=== PATIENT | male | born 1990 | race Caucasian/White ===

== ENCOUNTER 2020-09-30 03:54 | Day surgery (SDCO) | payer OTHER ==
[~2020-09-30 03:54] MED LIST: FLEXERIL5 MG PO; VOLTAREN **OUT50 MG PO
[2020-09-30 04:19] LABS: BASOPHIL 0.3 % (0-2); EOSINOPHIL 0.3 % (0-5); HCT 44.1 % (42.0-52.0); HGB 14.8 g/dl (13.2-18.0); LYMPHOCYTE 11.4 % (15-48); MCH 28.9 pg (25.0-31.0); MCHC 33.6 g/dL (32.0-36.0); MCV 86.1 fL (78.0-100.0); MONOCYTE 9.8 % (0-12); MPV 10.2 fL (6.0-9.5); NEUTROPHIL 77.9 % (41-80); NRBC 0; PLT 176 K/uL (150-400); RBC 5.12 M/uL (4.70-6.00); RDW 12.4 % (11.5-14.0); WBC 9.2 K/uL (4.0-10.5)
[2020-09-30 04:24] LABS: BILIRUBIN NEGATIVE (NEGATIVE); BLOOD TRACE-INTACT Ery/uL (NEGATIVE); CLARITY CLEAR (CLEAR); COLOR YELLOW (YELLOW); GLUCOSE (U) NORMAL (NORMAL); LEUKOCYTES NEGATIVE Leu/uL (NEGATIVE); NITRITE NEGATIVE (NEGATIVE); PROTEIN 2+ mg/dL (NEGATIVE); UROBILINOGEN 0.2 mg/dL (0.2-1.0); pH 5.5 (5.0-9.0)
[2020-09-30 04:27] LABS: URINARY RBC RARE
[2020-09-30 04:28] LABS: BACTERIA TRACE; SQUAMOUS EPITHELIAL CELLS RARE
[2020-09-30 04:37] LABS: ALBUMIN 4.1 g/dL (3.4-5.0); BILIRUBIN - TOTAL 0.8 mg/dL (0.2-1.0); CREATININE 2.4 mg/dL (0.67-1.17); GLOBULIN (CALCULATION) 3.5 g/dL; POTASSIUM 3.9 mmol/L (3.5-5.1); TOTAL PROTEIN 7.6 g/dL (6.4-8.2)
[2020-09-30] MEDS ORDERED: ZOFRAN4 M1 PO (06:52)
[2020-09-30] MEDS ORDERED: NORCO 5-325 TA1 EACH PO (06:52)
[2020-09-30 08:16] LABS: BUN/CREAT RATIO (CALC) 9.2 RATIO; CREATININE 2.62 mg/dL (0.67-1.17); POTASSIUM 3.8 mmol/L (3.5-5.1)
[2020-09-30 19:13] LABS: URINE CREATININE 121.13 mg/dL (29.00-226.00); URINE TOTAL PROTEIN-RANDOM 30.1 mg/dL (<11.9)
[2020-10-01 05:27] LABS: BUN/CREAT RATIO (CALC) 7.8 RATIO; CREATININE 2.95 mg/dL (0.67-1.17); POTASSIUM 4.1 mmol/L (3.5-5.1)
--- NOTE | 2020-10-01 12:52 | NUR ---
[address] BENSON OFFICE OF THE MORNING LABS PER HIS ORDERS. ANSWERING SERVICE NOTIFED THE NATURAL RESOURCE TECHNICIAN DOCTOR TO CALL BACK FOR THE RESULTS. 1020 DR. FRANCISCO NOTIFED THAT DR. RICO WAS NATURAL RESOURCE TECHNICIAN AND WOULD TALK TO HER WHEN SHE RETURNED THE CALL. 1030 DR. RICO WAS NATURAL RESOURCE TECHNICIAN FOR DR. BENSON AND DR. FRANCISCO WAS AT THE DESK AT THE TIME OF THE CALL AND TALKED TO DR. RICO AND REPORTED THE LAB RESULTS.
[2020-10-02 03:51] LABS: BUN/CREAT RATIO (CALC) 8.4 RATIO; CREATININE 2.15 mg/dL (0.67-1.17); POTASSIUM 4.1 mmol/L (3.5-5.1)
--- NOTE | 2020-10-02 11:27 | NUR ---
DISCUSSED DISCHARGE INSTRUCTIONS WITH PATIENT. PATIENT IN STABLE CONDITION.
[2020-10-03 18:08] LABS: A/G RATIO 1.5 (0.7-1.7); ALBUMIN 3.4 g/dL (2.9-4.4); ALPHA-1-GLOBULIN 0.2 g/dL (0.0-0.4); ALPHA-2-GLOBULIN 0.5 g/dL (0.4-1.0); BETA GLOBULIN 0.9 g/dL (0.7-1.3); GAMMA GLOBULIN 0.9 g/dL (0.4-1.8); GLOBULIN, TOTAL 2.4 g/dL (2.2-3.9); IMMUNOGLOBULIN A, QN, SERUM 294 mg/dL (90-386); IMMUNOGLOBULIN G, QN, SERUM 866 mg/dL (603-1613); IMMUNOGLOBULIN M, QN, SERUM 113 mg/dL (20-172); M-SPIKE Not Observed g/dL (Not Observed); PROTEIN, TOTAL, SERUM 5.8 g/dL (6.0-8.5)
== END 2020-10-02 11:24 | disposition home or self-care (01) ==
LOC: FER 03:54 → FMS 09:43
PROVIDERS: Emergency Medicine; Internal Medicine Nephrology; ADMIT Internal Medicine
DX: N17.9 Acute kidney failure, unspecified (principal); N20.0 Calculus of kidney; R80.9 Proteinuria, unspecified; U07.1 COVID-19; R74.8 Abnormal levels of other serum enzymes; Z98.890 Other specified postprocedural states; F17.210 Nicotine dependence, cigarettes, uncomplicated; Z82.49 Family history of ischemic heart disease and other diseases of the circulatory system
CPT/HCPCS: 36415; 80048; 80053; 81001; 82550; 82570; 82784; 83690; 83735; 84155; 84156; 84165; 84300; 85025; 86335; G0378; J1885; J2405; J7030; U0002

== ENCOUNTER 2021-01-02 13:45 | Emergency (ER) | payer OTHER ==
[~2021-01-02 13:45] MED LIST changes: +NORCO 5-325 TA1 EACH PO; +ZOFRAN4 M1 PO
[2021-01-02 15:22] LABS: BASOPHIL 0.3 % (0-2); EOSINOPHIL 0 % (0-5); HCT 46.1 % (42.0-52.0); HGB 15.7 g/dl (13.2-18.0); LYMPHOCYTE 1.7 % (15-48); MCH 29.6 pg (25.0-31.0); MCHC 34.1 g/dL (32.0-36.0); MPV 10.7 fL (6.0-9.5); NEUTROPHIL 93.7 % (41-80); NRBC 0; PLT 172 K/uL (150-400); RDW 12.9 % (11.5-14.0); WBC 11.3 K/uL (4.0-10.5)
[2021-01-02 15:24] LABS: BILIRUBIN NEGATIVE (NEGATIVE); BLOOD 1+ Ery/uL (NEGATIVE); CLARITY CLEAR (CLEAR); COLOR YELLOW (YELLOW); GLUCOSE (U) NORMAL (NORMAL); LEUKOCYTES NEGATIVE Leu/uL (NEGATIVE); NITRITE NEGATIVE (NEGATIVE); PROTEIN TRACE (LOW) mg/dL (NEGATIVE); SPECIFIC GRAVITY 1.025 (1.001-1.030); UROBILINOGEN 0.2 mg/dL (0.2-1.0)
[2021-01-02 15:31] LABS: BACTERIA TRACE; MUCOUS TRACE
[2021-01-02 15:36] LABS: ALBUMIN 4.5 g/dL (3.4-5.0); BILIRUBIN - TOTAL 1.2 mg/dL (0.2-1.0); C-REACTIVE PROTEIN 2.1 mg/dL (<=0.90); GLOBULIN (CALCULATION) 3.9 g/dL; POTASSIUM 4.4 mmol/L (3.5-5.1); TOTAL PROTEIN 8.4 g/dL (6.4-8.2)
[2021-01-02 15:39] LABS: LACTIC ACID 1.7 mmol/L (0.4-1.9)
[2021-01-02] MEDS ORDERED: ZOFRAN4 M1 PO (18:10)
== END 2021-01-02 18:27 | disposition home or self-care (01) ==
LOC: FER 13:45
PROVIDERS: Internal Medicine
DX: U07.1 COVID-19 (principal); R11.2 Nausea with vomiting, unspecified; R19.7 Diarrhea, unspecified; Z87.19 Personal history of other diseases of the digestive system
CPT/HCPCS: 36415; 80053; 81001; 83605; 83690; 85025; 86140; J7030; U0002

== ENCOUNTER 2022-01-19 07:48 | Emergency (ER) | payer OTHER ==
[2022-01-19 08:13] LABS: BASOPHIL 0.6 % (0-2); HCT 45.2 % (42.0-52.0); HGB 15.1 g/dl (13.2-18.0); LYMPHOCYTE 30.6 % (15-48); MCH 28.8 pg (25.0-31.0); MCHC 33.4 g/dL (32.0-36.0); MCV 86.3 fL (78.0-100.0); MONOCYTE 9.8 % (0-12); MPV 10.1 fL (6.0-9.5); NEUTROPHIL 54.8 % (41-80); NRBC 0; PLT 181 K/uL (150-400); RBC 5.24 M/uL (4.70-6.00); RDW 12.1 % (11.5-14.0)
[2022-01-19 09:13] LABS: ALBUMIN 3.8 g/dL (3.4-5.0); ALKALINE PHOSHATASE 75 U/L (46-116); ALT 25 U/L (16-63); AST 20 U/L (15-37); BILIRUBIN - TOTAL 0.5 mg/dL (0.2-1.0); BUN 17 mg/dL (7-18); CHLORIDE 103 mmol/L (98-107); CO2 (BICARBONATE) 29 mmol/L (21-32); CREATININE 1.13 mg/dL (0.67-1.17); GLOBULIN (CALCULATION) 3.6 g/dL; GLUCOSE 103 mg/dL (74-106); POTASSIUM 4.2 mmol/L (3.5-5.1); TOTAL PROTEIN 7.4 g/dL (6.4-8.2)
[2022-01-19 09:14] LABS: C-REACTIVE PROTEIN <0.20 mg/dL (<=0.90)
[2022-01-19] MEDS ORDERED: IBUPROFEN800 MG PO (10:09)
== END 2022-01-19 10:23 | disposition home or self-care (01) ==
LOC: FER 07:48
PROVIDERS: Emergency Medicine
DX: I30.9 Acute pericarditis, unspecified (principal); Z20.822 Contact with and (suspected) exposure to COVID-19
CPT/HCPCS: 36415; 71045; 80053; 84484; 85025; 86140; J2270; J2405; J2930; U0002